=== PATIENT | female | born 1985 | race Caucasian/White ===

== ENCOUNTER 2021-11-12 21:53 | Outpatient (CLI) | payer BC ==
[~2021-11-12] VITALS: Ht 154.9 cm; Wt 106.4 kg
[2021-11-12 22:29] VITALS: BP 128/71; PULSE 81; TEMP 98.5
[2021-11-12 22:30] VITALS: BP 117/63; PULSE 80
[2021-11-12 23:00] VITALS: BP 117/63; PULSE 80
[2021-11-12 23:30] VITALS: BP 117/66; PULSE 88
--- NOTE | 2021-11-12 23:38 | NUR ---
@2335 DR. SEGOVIA WAS NOTIFIED REGARDING PT COMPLAINT OF UTERINE CONTRACTIONS OCCURING Q5-6MINS. @2129 SVE /-3 NO BLODDY SHOW AND @2329 SVE /-3 NO BLOODY SHOW. MONITOR HASN'T PICKED UP ANY CONTRACTIONS NOR PALPATED ANY. MD SAID ITS OK TO DISCHARGE PATIENT TO HOME WITH INSTRUCTIONS TO COME BACK FOLLOWING THE TAKE HOME INSTRUCTIONS.
--- NOTE | 2021-11-12 23:57 | NUR ---
PATIENT GIVEN DISCHARGE INFORMATION AND ALL QUESTIONS HAVE BEEN ASNWERED AND PATIENT STATES AN UNDERSTANDING. PATIENT OBSERVED AMBULATING OFF THE UNIT WITH A STEADY GATE ALONG WITH SPOUSE.
== END 2021-11-12 23:56 ==
LOC: LDRO 21:53
DX: O62.9 Abnormality of forces of labor, unspecified (principal); Z3A.39 39 weeks gestation of pregnancy

== ENCOUNTER 2021-11-23 00:38 | Outpatient (CLI) | payer BC ==
[~2021-11-23] VITALS: Ht 152.4 cm; Wt 110.5 kg
--- NOTE | 2021-11-23 00:45 | NUR ---
0045- PT PRESENTS TO LDR COMPLAINING OF LEAKING FLUID AND CONTRACTIONS. AMBULATORY TO ROOM LR5, CHANGED INTO GOWN. 0052- EFM X2 APPLIED. PT REPORTS FEELING WET BUT NO BIG GUSH OF FLUID, REPORTS CONTRACTIONS SINCE 1500, SOME PINKISH SPOTTING SINCE HER OB VISIT THIS AFTERNOON. SHE REPORTS FEELING BABY MOVE. PLAN OF CARE FOR LABOR CHECK DISCUSSED AND QUESTIONS ANSWERED. 0100- AMNITRACE SWAB NEGATIVE FOR RUPTURE OF MEMBRANES, NO POOLING OF FLUID NOTED. SVE BY THIS NURSE 3-3 WITH NO POOLING OF FLUID. PT OK WITH PLAN OF WATCHING MONITOR FOR AN HOUR AND RECHECKING. 0124- MONITORS ADJUSTED. PT REPORTS CONTRACTIONS FEELING ABOUT THE SAME. NURSING ADMISSION HISTORY AND ASSESSMENTS COMPLETED. 0200- PT REPORTS CONTRACTIONS SEEM MORE INTENSE. SVE BY THIS NURSE UNCHANGED. DISCUSSED WITH PT WAITING ANOTHER HOUR AND RECHECKING AGAIN, OR PT DISMISSING TO HOME AT THIS TIME AND RETURNING WHEN HER CONTRACTIONS WERE CLOSER TOGETHER AND MORE UNCOMFORTABLE OR RUPTURE OF MEMBRANES. PT OK WITH DISMISSING TO HOME AT THIS TIME. 0214- DR BURNETT CALLED CHARTED, ORDERS RECEIVED FOR DISMISSAL TO HOME. PT OFF MONITORS FOR DISMISSAL.
[2021-11-23 01:00] VITALS: BP 134/75; PULSE 70; TEMP 98.8
[2021-11-23] MEDS ORDERED: ZYRTEC 10MG10 MG PO (01:48)
[2021-11-23] MEDS ORDERED: SINGULAIR 110 MG/TAB PO (01:48)
[2021-11-23] MEDS ORDERED: QUALITY CHOICE1 TA7 (01:49)
--- NOTE | 2021-11-23 02:28 | NUR ---
0228- DISMISSAL INSTRUCTIONS GIVEN AND PT VERBALIZES UNDERSTANDING. PT DISMISSED TO HOME AMBULATORY ACCOMPANIED BY SPOUSE.
[2021-11-23] MEDS ORDERED: TYLENOL 500MG500 MG PO (14:47)
== END 2021-11-23 02:28 | disposition home or self-care (01) ==
LOC: LDRO 00:38 → LDR 00:50 → LDRO 02:28
DX: O47.1 False labor at or after 37 completed weeks of gestation (principal); Z3A.41 41 weeks gestation of pregnancy
CPT/HCPCS: OP

== ENCOUNTER 2021-11-23 14:25 | Outpatient (CLI) | payer BC ==
[~2021-11-23] VITALS: Ht 157.5 cm; Wt 110.5 kg
[~2021-11-23 14:25] MED LIST: QUALITY CHOICE1 TA7; SINGULAIR 110 MG/TAB PO; ZYRTEC 10MG10 MG PO
--- NOTE | 2021-11-23 14:45 | NUR ---
1445- Pt states 5 days ago her mother was at her house and then tested positive for COVID. Pt denies any symptoms and states she tested herself prior to coming into the hospital and was negative.
[2021-11-23] MEDS ORDERED: TYLENOL 500MG500 MG PO (14:47)
[2021-11-23 15:00] VITALS: BP 121/69; PULSE 83; TEMP 98.7
--- NOTE | 2021-11-23 15:00 | NUR ---
1428- Pt ambulates on unit with . Complaints of decreased movement. Pt states she last felt the baby move at 1000 this morning. 1429- Pt directed into bed, EFM and TOCO on and tracing. O2 sat monitor on and tracing maternal HR on strip. Pt also complains of noticing her shorts wet at 0730 this morning and again around 0930 but no other leaking noted. Pt states she was seen as a labor check last night and was discharge home around midnight. Pt states she has had a small amount of pink discharge but no bright red bleeding. Pt states she has had UCs off and on but nothing regular since last night. VSS. Assessments completed. 1457- Amniotrace negative. SVE /-3. head ballotable, no fluid noted when lifted off cervix. POC explained. This RN to nurses station to call MD for any further orders, Call light at bedside with Pt.
[2021-11-23 15:30] VITALS: BP 117/62; PULSE 83
--- NOTE | 2021-11-23 15:30 | NUR ---
1506- Suspected FHR deceleration noted following peak of UC. FHR not tracing for approx 25 sec. then noted to be 65-90 bpm for approx 40 sec. then not tracing again for approx 15 sec. When tracing again FHR 125-135 bpm by the end of the UC. O2 sat monitor on tracing maternal HR throughout. See physician notification.
[2021-11-23 16:00] VITALS: BP 124/72; PULSE 78
--- NOTE | 2021-11-23 16:00 | NUR ---
1530- Pt calls this RN to bedside. Pt states she doesn't think the monitor is tracing her UCs. TOCO adjusted. Pt given marker button and explained to press when she feels UC start, verbalizes understanding. 1600- Pt presses button 5 times between [id number]. Only 2/5 were noted on monitor. Pt states some were stronger than others.
[2021-11-23 16:22] VITALS: BP 131/77; PULSE 75
--- NOTE | 2021-11-23 16:22 | NUR ---
1622- Pt and spouse updated on Dr Jeffries's order to discharge home, labor precautions explained and questions answered. EFM and TOCO off. Pt up to bathroom. 1630- Discharge paperwork given and explained. Questions answered. Pt ambulates off unit in stable condition with spouse.
== END 2021-11-23 16:35 | disposition home or self-care (01) ==
LOC: LDRO 14:25
DX: O36.8130 Decreased fetal movements, third trimester, not applicable or unspecified (principal); Z3A.41 41 weeks gestation of pregnancy

== ENCOUNTER 2021-11-24 02:15 | Inpatient (IN) | payer BC ==
[2021-11-24] VITALS (53 sets, daily range): BP systolic 94–186; BP diastolic 53–99; PULSE 58–116; TEMP 97.9–98.5
[~2021-11-24] VITALS: Ht 157.5 cm; Wt 110.5 kg
--- NOTE | 2021-11-24 02:00 | NUR ---
0200- NURSING STAFF MEETS PT AT ED ENTRANCE AFTER SHE CALLS UNIT STATING THEY ARE PULLING UP AND "THE BABY IS COMING." PT ASSISTED TO WHEELCHAIR FROM CAR, SHE STATES SHE IS NOT PUSHING AT THIS TIME. WHEELED TO LDR IN WHEELCHAIR. 0207- PT CHANGED TO GOWN AND TO BED, SVE BY De HOUSTON RN /-3, AMNIOTRACE POSITIVE WITH CLEAR FLUID POOLING. 0209- EFM X2 APPLIED. PT REPORTS CONTRACTIONS AND LOSS OF FLUID AROUND 0100. SHE ALSO REPORTS FEELING BABY MOVE. 0217- DR BURNETT CALLED CHARTED. ORDERS FOR ADMISSION AND EPIDURAL. 0220- IV START TO LEFT FOREARM X3 ATTEMPTS. BLOOD DRAWN FOR LAB. LR INFUSING. 0230- PT UP TO BATHROOM. 0235- LAXMI MENDOSA CALLED FOR EPIDURAL. NURSING ADMISSION HISTORY AND ASSESSMENT COMPLETE. 0247- LAXMI MENDOSA AT BEDSIDE FOR EPIDURAL PLACEMENT. PT POSITIONED SITTING UP ON EDGE OF BED. LAXMI ANSWERS QUESTIONS AND GETS VERBAL CONSENT FOR EPIDURAL PLACEMENT. TIME OUT COMPLETE. 0253- EPIDURAL SINGLE SHOT. PT TOLERATING WELL. 0300- EPIDURAL COMPLETE. PT POSITIONED IN LEFT TILT POSITION. MONITORS ADJUSTED. 0315- PT REPORTS INCREASING COMFORT.
[~2021-11-24 02:15] MED LIST changes: +TYLENOL 500MG500 MG PO
[2021-11-24 02:41] LABS: BASO % 0.2 % (0.0-2.0); EOS % 0.4 % (0.0-4.0); HEMATOCRIT 40.3 % (37.0-47.0); HEMOGLOBIN 13.7 g/dl (12.5-16.0); LYMPH # 2.2 K/mm3 (1.2-3.4); LYMPH % 20.9 % (20.0-51.0); MEAN CELL VOLUME 83 fl (80.0-100.0); MEAN CORPUSCULAR HEMOGLOBIN 28 pg (27-31); MEAN CORPUSCULAR HGB CONC 34 g/dl (33.0-37.0); MONO # 1.3 K/mm3 (0.1-0.6); MONO % 12.1 % (1.7-9.3); PLATELET COUNT 231 K/mm3 (130-400); RED BLOOD COUNT 4.85 M/mm3 (4.10-5.30); REDCELL DISTRIBUTION WIDTH-CV 14.5 % (11.5-14.5)
--- NOTE | 2021-11-24 04:20 | NUR ---
0420- PT RESTING QUIETLY. MONITORS ADJUSTED. NEW LR BAG INFUSING.
--- NOTE | 2021-11-24 14:30 | NUR ---
Unable to determine FHR baseline. RN at the bedside while pushing. Frequent attempts to adjust EFM.
--- NOTE | 2021-11-24 14:38 | NUR ---
1140- Pt reports feeling pressure. This RN at the bedside. SVE done /-1. Dr. Arguello notified. Pelletier removed without complications. 1154- This RN remains at the bedside. Pushing started. 1255- Dr. Arguello at the bedside to evaluate pushing. This RN remains at the bedside and pushing with pt. Attempting different positions while pushing with pt. 1330- This RN remains at the bedside and pushing with pt. 1430- Dr. rAguello at the bedside to evaluate pushing. Discussion with pt and about the use of a vacuum to assist with delivery due to maternal exhaustion. Pt verbalized an understanding and gives consent. Additional staff notified and to the bedside for delivery. 1437- Vacuum applied per Dr. Arguello with traction while pushing with pt. 1438- Vacuum assisted delivery of viable male . Chapman placed on mom's abdomen. Care of the given to nursery RN at the bedside. 1451- of placenta. Pitocin started at 333ml/hr per order and protocol. Fundus firm and lochia WNL.
--- NOTE | 2021-11-24 17:30 | NUR ---
Pt up to the bathroom with stand-by assist and without complications. Pt was able to void. Karina-care done. Pt transferred to room 218 via wheelchair. Oriented to room, bed and call light within reach. Plan of care reviewed.
[2021-11-25 02:45] VITALS: BP 101/52; PULSE 60; TEMP 98
[2021-11-25 07:45] VITALS: BP 102/57; PULSE 88; TEMP 97.8
--- NOTE | 2021-11-25 09:32 | NUR ---
Initial visit attempt; Family resting, Collar Trimmer left card of congratulations and God's blessings for the of their son along with information regarding the availability of spiritual care at our hospital.
[2021-11-25 17:53] VITALS: BP 108/64; PULSE 84; TEMP 98.8
[2021-11-25 19:50] VITALS: BP 121/67; PULSE 92; TEMP 98.7
[2021-11-26 07:26] VITALS: BP 105/59; PULSE 66; TEMP 97.9
[2021-11-26] MEDS ORDERED: IBU800 M1 PO (08:44)
== END 2021-11-26 14:35 | disposition home or self-care (01) | DRG 806 ==
LOC: LDR 02:15 → OB 02:15
PROVIDERS: ADMIT Obstetrics & Gynecology
PROC: 10D07Z6 Extraction of Products of Conception, Vacuum, Via Natural or Artificial Opening (ICD-10-PCS; principal; 2021-11-24)
PROC: 3E033VJ Introduction of Other Hormone into Peripheral Vein, Percutaneous Approach (ICD-10-PCS; 2021-11-24)
DX: O48.0 Post-term pregnancy (principal); E75.02 Tay-Sachs disease; Z37.0 Single live birth; O99.284 Endocrine, nutritional and metabolic diseases complicating childbirth; O75.81 Maternal exhaustion complicating labor and delivery; Z3A.41 41 weeks gestation of pregnancy; O99.214 Obesity complicating childbirth; O99.52 Diseases of the respiratory system complicating childbirth; J45.909 Unspecified asthma, uncomplicated; O69.81X0 Labor and delivery complicated by cord around neck, without compression, not applicable or unspecified; Z86.16 Personal history of COVID-19
CPT/HCPCS: J2405; J2590; J7120

== ENCOUNTER → 2024-01-14 | Outpatient (CLI) | payer BC ==
[~2024-01-14] MED LIST changes: +IBU800 M1 PO
== END ==
LOC: COL.VAS 12:59
DX: R60.0 Localized edema (principal)